=== PATIENT | female | born 1965 | race Caucasian/White ===

== ENCOUNTER 2017-04-05 12:42 | Emergency (ER) | payer OTHER ==
[~2017-04-05] VITALS: Ht 160 cm; Wt 78.6 kg
[~2017-04-05 12:42] MED LIST: ALBU8.5H4 INHALATION; FLUT9.9S NS; GABA-502 PO; METH750T3 PO; OMEP20CA11 PO; OXYC-466 PO; PRE20 PO
[2017-04-05 12:57] VITALS: BP 132/82; PULSE 71; RESP 20; O2SAT 99
[2017-04-05] MEDS ORDERED: AMIT10TA6 PO (13:11)
--- NOTE | 2017-04-05 13:35 | ED.REPORT ---
HPI-Back Pain 40 and Over Date of Service Apr 05, 2017 ED Provider: Jon Pagan PA-C Yasmeen a 52-year-old female with history of neck and lower back pain presenting to the emergency department with chief complaint of low back pain. Patient reports exacerbation of her low back pain that began approximately 4 days ago, first noticed when she got up in the morning. He has been to treatment with 10 mg oxycodone which she is prescribed for chronic neck pain. She also complains of a pins and needle sensation in her bilateral hands, which is exacerbated by hyperextension. Denies numbness, tingling, weakness or pain in lower extremity. Denies fever, DM, HIV, organ transplant, immunosuppression, recent surgery, recent infection, history of back surgery, surgical implants and IV drug use. Denies bowel/bladder dysfunction and saddle anesthesia. Denies urinary symptoms , history of cancer, trauma. Nursing Notes Stated Complaint: BACK PAIN Chief Complaint: Back Pain or Injury Nursing Notes Reviewed: Yes Allergies: Coded Allergies: Dust (Verified Allergy, Severe, Nasal Congestion, 05/07/15) Scheduled Amitriptyline (Amitriptyline) 10 Mg Tablet 10 MG PO HS Fluticasone Propionate (Flonase Allergy Relief) 50 Mcg/Actuation [place].susp 9.9 ML NS DAILY Gabapentin (Gabapentin) 300 Mg Capsule 600 MG PO TID Methocarbamol (Methocarbamol) 750 Mg Tablet 750 MG PO BID oxyCODONE-Acetaminophen 10-325 mg (oxyCODONE-Acetaminophen 10-325 mg) 1 Each Tablet 1 MG PO QID General Time Seen by MD: 13:15 Chief Complaint Lumbar pain Sudden in Onset?: No Past Medical History Past Medical History GERD Neck spinal fusion Lower back injury Chronic chest and back pain Reports: GERD Past Surgical History spinal fusion tubal ligation hysterectomy tonsillectomy adnoid surgery Family History Noncontributory Smoking History Current Every Day Smoker Social History Alcohol Use: "Social" Drug Use: Denies drug use Ambulatory Status Independent Review of Systems Negative unless stated otherwise in history of present illness Physical Exam General: Well appearing, well developed, well nourished, no acute distress. Head: Atraumatic, normocephalic. Eyes: No scleral icterus or injection. No discharge. Vision grossly intact. ENT: Voice clear, hearing grossly intact. Respiratory: Regular rate and rhythm. Breath sounds present, clear to auscultation and equal bilaterally. No respiratory distress. No increased work of breathing, speaks in complete sentences. Cardiovascular: Regular rate and rhythm, without murmur, gallop or rub. No pedal edema. Gastrointestinal: Abdomen flat and non-tender without guarding or rebound. Bowel sounds normoactive. Skin: Warm and dry. Neurological: Normal gait. Hip flexion, knee extension, ankle dorsiflexion and plantarflexion strength 5/5 B/L. Patellar and Achilles reflexes present and equal B/L. Sensation to light touch intact at medial leg, dorsal foot and lateral foot B/L. negative straight leg raise, negative cross straight leg raise. Deltoid abduction, wrist flexion and extension, finger flexion and abduction strength 5/5 B/L. Sensation to light touch intact over deltoid as well as first , third and fifth digits B/L. Biceps, triceps and brachioradialis reflexes 2+ B/ L. Psychological: Alert and oriented. Speech appropriate, linear and logical. Behavior appropriate. Initial Vital Signs Vital Signs (First) Date Time Temp Pulse Resp B/P Pulse Ox O2 Delivery O2 Flow Rate FiO2 04/05/17 12:57 37 71 20 132/82 99 Room Air Normal Re-Eval/Medical Decision Med Decision/Clinical Course This 52-year-old female with a history of neck and low back pain presenting the emergency Department chief complaint of low back pain for the last 4 days first noted upon rising from bed. Steadily worsening since then. Patient denies red flag history. Physical examination reveals midline tenderness over the length of the lumbar spine. Otherwise benign, with normal neurological examination, normal vitals, specifically afebrile. Back pain is without red flag symptoms for acute disc herniation, cauda equina, infection, hematoma, trauma, pyelonephritis, nephrolithiasis, AAA, cancer. I believe this is musculoskeletal back pain. Attempted to contact the patient's primary care provider, who is quite slow in returning my call. Patient wished to be discharged prior to receiving this call. Patient eventually feels somewhat improved after Percocet, ketorolac and IM Dilaudid. She has a robust home opiate regimen to which I suggested adding naproxen and acetaminophen. Advised regarding primary care follow-up, provided emergency return precautions. Patient verbalized understanding of, and consent to, the plan. Discharge & Departure Impression: Primary Impression: Low back pain Chronicity: chronic Back pain laterality: midline Sciatica presence: without sciatica Qualified Code: M54.5 - Low back pain Disposition: Home Discharge Condition All VS Reviewed: Yes Condition: Stable Patient Instructions: Acute Low Back Pain (ED) Additional Instructions: Evaluation in the emergency department for lower back pain. History and physical are reassuring for emergent neurological condition such as epidural abscess or cauda equina syndrome. History does not suggest that this is likely to be a spinal fracture. Your neurological examination is normal, indicating there is no damage to the nerves in your back. I see no indication to perform imaging tests at this time. Treatment is largely symptomatic. Rest is important, especially for the next couple of days, but avoid total bed rest. Reasonable activity as tolerated is the best. The pain is best treated with 500 mg of naproxen (Aleve) every 12 hours hours, and 1000 mg of acetaminophen (Tylenol) every 6 hours. These drugs can be taken at the same time for more severe pain. Take this along with your usual oxycodone regimen. Follow-up with your primary care provider in the next week or two to be sure your recovery is progressing as expected. Return the emergency department for new or worsening symptoms such as loss of bowel/bladder control, numbness between your legs, new weakness/numbness or high fever. Referrals: Moy Marquez DO (PCP) EDSupervising Provider for APC: Aysha Puri MD copies to: Moy Marquez Seth PA-C Apr 05, 2017 13:35
[2017-04-05] MEDS ORDERED: oxyCODONE-Acetamin 5-325 mg Tablet PO ONE (13:40)
[2017-04-05] MEDS ORDERED: HYDROmorphone 1 mg/mL Inj IM ONE (15:20)
[2017-04-05 15:53] VITALS: BP 144/89; PULSE 69; RESP 18; O2SAT 99
== END 2017-04-05 15:53 | disposition home or self-care (01) ==
LOC: SED 12:42
DX: M54.5 Low back pain (principal); R20.8 Other disturbances of skin sensation; K21.9 Gastro-esophageal reflux disease without esophagitis; F17.200 Nicotine dependence, unspecified, uncomplicated; Z87.828 Personal history of other (healed) physical injury and trauma; Z90.89 Acquired absence of other organs; Z90.710 Acquired absence of both cervix and uterus; Z98.890 Other specified postprocedural states
CPT/HCPCS: 96372; 99284; J1170; J1885